=== PATIENT | female | born 1995 | race Asian ===

== ENCOUNTER 2023-05-29 10:07 | Outpatient (CLI) | payer OTHER ==
[2023-05-29] VITALS (7 sets, daily range): BP systolic 124–135; BP diastolic 64–90; PULSE 83–105; TEMP 97.9
[~2023-05-29] VITALS: Ht 152.4 cm; Wt 83.9 kg
--- NOTE | 2023-05-29 10:15 | NUR ---
1015PT AMBULATORY TO UNIT WITH SPOUSE AND MOTHER IN LAW. PT CHANGED INTO GOWN. PT COMFORTABLE IN BED. 1020THIS RN AT BEDSIDE TO PLACE TOCO AND EFM. EFM TRACING CAT I. PT VITAL SIGNS STABLE. 1025PT STATES SHE CAME IN DUE TO CTX. SHE STATES FEELING CRAMPS IN HER MID TO LOWER STOMACH AND IN HER BACK. SHE STATES FEELING THEM EVERY 10 TO 15 MINUTES APART. PT STATES ALSO FEELING SOME NAUSEA EARLIER IN THE DAY. SHE STATES FEELING OCCASIONAL VAGINAL AND RECTAL PRESSURE. PT REPORTS POSITIVE MOVEMENT. PT DENIES ANY LEAKING OF FLUID AND DENIES VAGINAL BLEEDING. 1030SVE AT THIS TIME BY THIS RN WITH A SECOND CHECK BY JOAN FELIZ. /2. 1055DR MILADIS NOTIFED. DR REDDING ORDERED TO DO A ROUTINE LABOR CHECK. DR REDDING ALSO ORDERED A CBC, CMP, AND A UA. HE STATES CALL HIM BACK AFTER AN HOUR AND WHEN THE LABS ARE BACK.
[2023-05-29] MEDS ORDERED: PRILOSEC10 MG PO (10:47)
[2023-05-29] MEDS ORDERED: PROMETHAZINE12.5 M5 PO (10:48)
[2023-05-29] MEDS ORDERED: PRENATAL TABLET PO (10:48)
[2023-05-29 11:57] LABS: HEMOGLOBIN 11.8 g/dl (12.5-16.0); MEAN CELL VOLUME 89 fl (80.0-100.0); MEAN CORPUSCULAR HEMOGLOBIN 30 pg (27-31); MEAN CORPUSCULAR HGB CONC 33 g/dl (33.0-37.0); MEAN PLATELET VOLUME 9.8 fl (7.4-10.4); PLATELET COUNT 318 K/mm3 (130-400); RED BLOOD COUNT 3.99 M/mm3 (4.10-5.30); REDCELL DISTRIBUTION WIDTH-CV 13.2 % (11.5-14.5)
[2023-05-29 12:10] LABS: COLLECTION METHOD CLEAN CATCH
[2023-05-29 12:15] LABS: HEMATOCRIT 35.3 % (37.0-47.0)
[2023-05-29 12:20] LABS: BAND 4 % (0-10); LYMPHOCYTE 18 % (20.0-51.0); NEUTROPHILS 73 % (42.0-75.2); PLATELET ESTIMATE NORMAL (NORMAL)
[2023-05-29 12:22] LABS: URINE APPEARANCE CLEAR (CLEAR/HAZY); URINE BLOOD NEGATIVE (NEGATIVE); URINE COLOR YELLOW (YELLOW); URINE GLUCOSE NEGATIVE (NEGATIVE); URINE KETONE NEGATIVE (NEGATIVE); URINE NITRATE NEGATIVE (NEGATIVE); URINE PROTEIN(semi-quant) NEGATIVE (NEGATIVE); URINE UROBILINOGEN 0.2 E.U/dL (0.2-1.0)
[2023-05-29 12:24] LABS: ALBUMIN 2.9 gm/dL (3.5-5.0); ALKALINE PHOSPHATASE 115 U/L (40-150); ANION GAP 11 mmol/L (7-16); AST,SGOT 15 U/L (5-34); BILIRUBIN,TOTAL 0.4 mg/dL (0.2-1.2); BLOOD UREA NITROGEN 7 mg/dL (7-19); CALCIUM 9.4 mg/dL (8.4-10.2); CARBON DIOXIDE 19 mmol/L (22-29); CHLORIDE 108 mmol/L (98-107); CREATININE, serum 0.69 mg/dL (0.57-1.11); GLUCOSE 75 mg/dL (70-99); POTASSIUM 3.7 mmol/L (3.5-4.5); SODIUM 138 mmol/L (136-145); TOTAL PROTEIN 6.6 gm/dL (6.2-8.1)
[2023-05-29] MEDS ORDERED: LR 1,000 ML IV PRN (12:30)
[2023-05-29 12:45] LABS: ALANINE AMINOTRANSFERASE < 6 U/L (0-55)
--- NOTE | 2023-05-29 13:28 | NUR ---
1325THIS RN GOES OVER DISCHARGE PAPERWORK WITH PT. DISCUSSED WHEN TO COME BACK AND WHAT ACTIVE LABOR MAY LOOK LIKE. PT VERBALIZES UNDERSTANDING. 1328PT AMBULATORY OFF UNIT WITH SPOUSE AND MOTHER IN LAW.
== END 2023-05-29 13:28 | disposition home or self-care (01) ==
LOC: LDRO 10:07
PROVIDERS: Obstetrics & Gynecology
DX: Z34.90 Encounter for supervision of normal pregnancy, unspecified, unspecified trimester (principal)

== ENCOUNTER 2023-05-29 16:50 | Inpatient (IN) | payer OTHER ==
[2023-05-29] VITALS (24 sets, daily range): BP systolic 82–126; BP diastolic 40–80; PULSE 82–126; TEMP 98.4
[~2023-05-29] VITALS: Ht 152.4 cm; Wt 83.9 kg
[~2023-05-29 16:50] MED LIST: PRENATAL TABLET PO; PRILOSEC10 MG PO; PROMETHAZINE12.5 M5 PO
--- NOTE | 2023-05-29 17:00 | NUR ---
1700PT TO UNIT IN A WHEELCHAIR WITH SPOUSE AND MOTHER IN LAW. PT CHANGED INTO GOWN AND COMFORTABLE IN BED. 1710THIS RN AT BEDSIDE TO PLACE TOCO AND EFM. EFM TRACING CAT I. PT VITAL SIGNS STABLE. 1715PT REPORTS HAVING CTX EVERY 2-3 MINUTES LASTING 60 SECONDS. PT STATES FEELILNG VERY UNCOMFORTABLE AND COULD NOT FIND ANY COMFORT. PT REPORTS STILL POSITIVE MOVEMENT. PT DENIES LOF AND DENIES ANY VAGINAL BLEEDING. SVE AT THIS TIME. . EFM TRACING CAT I. TOCO TRACING CTX EVERY 2.5 TO [address] 1730[address] GOODPASTURE NOTIFIED. ADMISSION ORDER GIVEN. 1750IV STARTED AT THIS TIME. TYPE AND SCREEN DRAWN AND SENT TO LAB. PT REQUESTS EPIDURAL. 1755FIRST BAG OF IVF STARTED AT THIS TIME. FLUID BOLUS STARTED. 1800[facility] BIOLOGIST NOTIFIED OF PT REQUEST FOR EPIDURAL. OBEY STATES HE WILL BE THERE SOON.
[2023-05-29] MEDS ORDERED: LR 1,000 ML IV SCH (18:15)
[2023-05-29] MEDS ORDERED: LR & Oxytocin 500 ML IV SCH ×2 (18:15→22:30)
--- NOTE | 2023-05-29 18:22 | NUR ---
1821- REPORT RECEIVED AND CARE ASSUMED. 1824- PT REPORTS INCREASED DISCOMFORT. EPIDURAL PROCESS DISCUSSED AND QUESTIONS ANSWERED. PT OFF MONITORS TO GET UP TO BATHROOM PRIOR TO EPIDURAL PLACEMENT. 1835- OBEY PURCHASING EXPEDITOR AT BEDSIDE FOR EPIDURAL PLACEMENT. PT POSITIONED SITTING UP ON EDGE OF BED. OBEY DISCUSSES RISKS AND BENEFITS AND HAS PT SIGN CONSENT. 1842- SINGLE SHOT FOR EPIDURAL. 1848- EPIDURAL COMPLETE. PT TOLERATED WELL. PT POSITIONED FOR COMFORT AND MONITORS ADJUSTED. PT REPORTS FEELING HER TOES WARM AND TINGLY. 1904- CONSENTS SIGNED. 1909- SVE BY THIS NURSE /. UPDATED PLAN OF CARE WITH PT AND ANSWERED QUESTIONS. PT REPORTS SHE IS COMFORTABLE WITH HER EPIDURAL.
[2023-05-29] MEDS ORDERED: ROPivacaine PF 0.2% 200 ML IV ONE (18:52)
[2023-05-29] MEDS ORDERED: diphenhydrAMINE 25 MG CAP PO PRN (19:00)
[2023-05-29] MEDS ORDERED: ePHEDrine 50 MG/10 ML VIAL IV PRN (19:00)
[2023-05-29] MEDS ORDERED: Naloxone 0.4 MG/ML VIAL IV PRN (19:00)
[2023-05-29] MEDS ORDERED: Ondansetron 4 MG/2 ML VIAL IV PRN (19:00)
[2023-05-29] MEDS ORDERED: diphenhydrAMINE 50 MG/ML 1 ML VIAL IV PRN (19:00)
--- NOTE | 2023-05-29 19:40 | NUR ---
1939- PT REPORTS SHE IS COMFORTABLE WITH HER EPIDURAL, SHE DENIES NEEDS AT THIS TIME. 2034- WILSON CATHETER PLACED AT THIS TIME WITHOUT DIFFICULTY. SVE BY THIS NURSE STILL UNCHANGED. PT TURNED TO RIGHT TILT AND MONITORS ADJUSTED.
--- NOTE | 2023-05-29 20:40 | NUR ---
2039-TUMS GIVEN FOR PT COMPLAINT OF HEARTBURN. 2051- MONITORS ADJUSTED. PT REPORTS COMFORTABLE WITH HER EPIDURAL. 2107- PT HAS EPISODE OF VOMITTING. ZOFRAN OFFERED. 2114- ZOFRAN PROVIDED PER PT REQUEST. 2153- DR SULLIVAN AT BEDSIDE. INTRODUCES SELF AND DISCUSSES PLAN OF CARE AND POSSIBLE AROM. PT IS AGREEABLE AT THIS TIME. 2154- SVE BY DR SULLIVAN -/-3 WITH BALLOTABLE HEAD PRESENTING PART. DR DOES NOT FEEL COMFORTABLE WITH AROM AT THIS TIME DUE TO BALLOTABLE PRESENTATION. DISCUSSES PITOCIN AUGMENTATION INSTEAD AND PT IS AGREEABLE. ANSWERS PT QUESTIONS.
--- NOTE | 2023-05-29 22:22 | NUR ---
2222- NURSE TO BEDSIDE WITH PITOCIN. QUESTIONS ANSWERED. PITOCIN DRIP STARTED ORDERED FOR AUGMENTATION OF LABOR.
--- NOTE | 2023-05-29 22:30 | NUR ---
2229- DR SULLIVAN REVIEWS STRIP. SHE STATES SINCE THERE ARE OTHER PT'S ON THE FLOOR WITH STRIP PROBLEMS AND SINCE THIS PT'S BABY IS BALLOTABLE ON EXAM, SHE WOULD LIKE TO "SLOW PIT" HER. SHE STATES SHE DOESN'T WANT TO GO UP ON PITOCIN EVERY 15 MINUTES BECAUSE THE BABY IS SO HIGH.
--- NOTE | 2023-05-29 23:12 | NUR ---
2312- PITOCIN INCREASED TO 4MU/MIN. PT IS SLEEPING AT THIS TIME. 0005- DR SULLIVAN AT DESK. SHE REVIEWS STRIP. STATES TO WAIT AT LEAST AN HOUR AT 4MU/MIN BEFORE TURNING PITOCIN UP. 0020- PITOCIN INCREASED TO 6MU/MIN. PT IS SLEEPING AT THIS TIME. 0030- DR SULLIVAN AT DESK AND NOTIFIED THAT PITOCIN HAS BEEN TURNED UP TO 4MU/MIN. SHE STATES TO LEAVE PITOCIN AT 6MU/MIN FOR AT LEAST AN HOUR BEFORE CONSIDERING TURNING IT UP.
[2023-05-30] VITALS (44 sets, daily range): BP systolic 92–132; BP diastolic 52–70; PULSE 77–121; TEMP 97.7–101.8
--- NOTE | 2023-05-30 00:50 | NUR ---
0050- NURSE TO BEDSIDE. PT IS CURRENTLY AWAKE. DISCUSSED PLAN OF CARE WITH PT IN REGARDS TO HER PITOCIN. QUESTIONS ANSWERED. PT TURNED TO LEFT TILT WITH PEANUT BALL.
--- NOTE | 2023-05-30 01:18 | NUR ---
0118- DR SULLIVAN AT BEDSIDE. SVE BY DR SULLIVAN /-2. SROM OF CLEAR FLUID DURING DR SULLIVAN'S EXAM. DR SULLIVAN DISCUSSES PLAN OF CARE WITH PT AND FAMILY, QUESTIONS ANSWERED. 0120- DR SULLIVAN STATES TO LEAVE PITOCIN AT 6MU/MIN FOR NOW, UNLESS CONTRACTIONS "REALLY SPACE OUT."
--- NOTE | 2023-05-30 01:40 | NUR ---
0140- PT REPORTS FEELING COMFORTABLE WITH HER EPIDURAL. SHE DENIES NEEDS AT THIS TIME. URINE OUTPUT IN WILSON IS MINIMAL AND DARK. TUBING MILKED AND REPOSITIONED. 0158- MONITORS ADJUSTED. 0250- NURSE TO BEDSIDE. PT REPORTS BEING COMFORTABLE WITH HER EPIDURAL. SHE STATES SHE IS HAVING SOME MILD INTERMITTENT PRESSURE IN HER BOTTOM. ALSO STATES SHE IS STILL HAVING SOME ACID REFLUX. MORE TUMS OFFERED AND PT WISHES TO TRY THEM. 0252- TUMS PROVIDED. WILSON STILL WITH MINIMAL OUTPUT. CATHETER TUBING MILKED AND REPOSITIONED. TUBING ALSO FLUSHED WITH SALINE. WILL CONTINUE TO MONITOR.
--- NOTE | 2023-05-30 04:25 | NUR ---
0425- NURSE TO BEDSIDE. PT REPORTS THAT SHE IS FEELING SOME MORE PRESSURE. NOT INTENSE, BUT SHE NOTICES IT WITH CONTRACTIONS. 0430- SVE BY THIS NURSE 8/0. PT REPOSITIONED TO RIGHT TILT WITH PEANUT BALL. WILSON CONTINUES TO HAVE MINIMAL URINE OUTPUT. CATHETER TUBING MILKED AND REPOSITIONED. PT ENCOURAGED TO CALL OUT WITH INCREASING PRESSURE.
--- NOTE | 2023-05-30 05:05 | NUR ---
0505- PT CALLS OUT COMPLAINING OF PRESSURE. NURSE TO BEDSIDE, SVE BY THIS NURSE 1. DISCUSSED PLAN OF CARE WITH PT AND ENCOURAGED HER TO CALL OUT WITH INCREASING PRESSURE. 0550- PT CALL OUT COMPLAINING OF INTENSE RECTAL PRESSURE. NURSE TO BEDSIDE, SVE BY THIS NURSE 2. DISCUSSED PLAN OF CARE FOR PUSHING WITH PT AND QUESTIONS ANSWERED. 0557- WILSON CATHETER REMOVED FOR PUSHING. NURSE DISCUSSES PUSHING WITH PT AND QUESTIONS ANSWERED. PT POSITIONED IN FOOTPLATES FOR PUSHING. 0601- PT BEGINS COACHED PUSHING WITH CONTRACTIONS. AND MOTHER IN LAW AT BEDSIDE. 0605- DURING PUSHING, PT BEGINS HAVING MODERATE AMOUNT OF VAGINAL BLEEDING. A PUDDLE FORMS UNDER PT BUTTOCKS. 0607- PT CONTINUES TO HAVE MODERATE AMOUNT OF VAGINAL BLEEDING WITH PUSHING. 0608- UNDERBUTT PAD CHANGED. 0609- PT PUSHES WITH CONTRACTION. BLEEDING HAS DECREASED, BUT IS STILL A CONTINUOUS TRICKLE. 0614- VAGINAL BLEEDING DECREASED TO NORMAL AMOUNT OF BLOODY SHOW AT THIS TIME. WILL CONTINUE TO MONITOR. 0625- BEDSIDE SHIFT REPORT GIVEN TO JOSEY Castro RN, INCLUDING DISCRIPTION OF VAGINAL BLEEDING AT BEGINNING OF PUSHING AND DECREASED URINE OUTPUT.
[2023-05-30] MEDS ORDERED: Gentamicin/Sodium Chloride 100 ML IV ONE (08:30)
[2023-05-30] MEDS ORDERED: metroNIDAZOLE 100 ML IV SCH (08:30)
--- NOTE | 2023-05-30 08:46 | NUR ---
0625THIConner RN ASSUMES CARE OF PT AT THIS TIME. 0625CONTINUE PUSHING WITH PT AT THIS TIME. 0715DR REDDING AT BEDSIDE TO ASSESS. 0720GOOD MATERNAL EFFORT WITH PUSHING PER DR REDDING. DR REDDING DISCUSSES WITH PT MOVING FORWARD. 0722PUSHING STOPPED AT THIS TIME. PT ORDERED TO LABOR DOWN FOR ABOUT 30 MINUTES, VERBAL ORDER PER DR REDDING. DR REDDING NEEDED FOR MORNING . PT ORDERED TO REST THROUGH CTX. 0755THIConner RN AT BEDSIDE TO REPOSITION PT. PT FEELS WARM TO TOUCH. THIS RN CHECKS TEMPERATURE. 100.4 VIA ORAL. 101.[address] REDDING NOTIFIED AND AWARE. 0810ORDERED PER DR REDDING TO BEGIN PUSHING AGAIN AT THIS TIME. 0815DR REDDING AT BEDSIDE. DR REDDING ORDERS ANTIBIOTICS TO BE GIVEN. 0820PT NAUSEOUS AND PUKING AT THIS TIME. 0822PT STATES SHE FEELS BETTER AFTER. 0824THIConner RN RESUMES PUSHING WITH PT AT THIS TIME. GOOD MATERNAL EFFORT. 0826SUKenton RN AT BEDSIDE TO ASSIST HIS RN WITH ANTIBIOTICS. 0835DR REDDING BACK AT BEDSIDE. 0840ROOM AND BED SET UP FOR IMPENDING DELIVERY. NURSERY NURSE NOTIFIED. 0846SVD OF VIABLE FEMALE INFANT PER DR REDDING. INFANT PLACED ON MATERNAL ABDOMEN. CARE ASSUMED BY NURSERY. 0850SVD OF PLACENTA PER DR REDDING. STRAIGHT CATH AT THIS TIME PER DR REDDING. PARTIAL THIRD DEGREE PERINEAL LACERATION NOTED PER DR REDDING. REPAIR STARTED AT THIS TIME. MODERATE AMOUNT OF BLEEDING NOTED. PT VITAL SIGNS STABLE. 0855REPAIR FINISHED AT THIS TIME PER DR REDDING. FUNDUS FIRM AT U. LOCHIA WNL. PT VITAL SIGNS STABLE. 0900ROOM AND BED PUT BACK TOGETHER. PT CLEANED UP. PERICARE PERFORMED. PT COMFORTABLE IN BED. CHUX PAD CHANGED. ICE PACK PLACED ON PERINEUM. FUNDUS FIRM AT U. LOCHIA WNL. PT VITAL SIGNS STABLE.
[2023-05-30] MEDS ORDERED: oxyCODONE 5 MG TAB PO PRN (11:00)
--- NOTE | 2023-05-30 11:30 | NUR ---
THIS RN GIVES REPORT TO DANILO FELIZ. DANILO FELIZ ASSUMES CARE OF PT
[2023-05-30] MEDS ORDERED: Ibuprofen 600 MG TAB PO SCH (12:00)
[2023-05-30] MEDS ORDERED: Acetaminophen 500 MG TAB PO PRN (12:00)
[2023-05-30] MEDS ORDERED: Acetaminophen 500 MG TAB PO SCH (12:00)
[2023-05-30] MEDS ORDERED: Sennosides/Docusate 8.6-50 MG TAB PO SCH (17:00)
[2023-05-30] MEDS ORDERED: Magnes Hydrox (MOM) 80 MG/ML 30 ML CUP PO PRN (21:30)
[2023-05-31 00:31] VITALS: BP 107/57; PULSE 91; TEMP 97.7
[2023-05-31] MEDS ORDERED: IBU600 MG PO (08:30)
[2023-05-31] MEDS ORDERED: TYLENOL 500MG500 MG PO (08:30)
[2023-05-31] MEDS ORDERED: Prenatal Vitamins/Iron/FA TAB PO SCH (09:00)
[2023-05-31 09:05] VITALS: BP 108/77; PULSE 82; TEMP 98
[2023-05-31 17:14] VITALS: BP 130/77; PULSE 80; TEMP 97.7
[2023-05-31 20:10] VITALS: BP 128/72; PULSE 92; TEMP 97.6
[2023-06-01 08:09] VITALS: BP 117/78; PULSE 79; TEMP 98
--- NOTE | 2023-06-01 13:35 | NUR ---
DISCHARGE INSTRUCTIONS REVIEWED WITH PT REGARDING SELF CARE AND BOARDER STATUS FOR BABY. QUESTIONS INVITED AND ANSWERED. PT VERBALIZES UNDERSTANDING. PT DISCHARGED TO BOARDER STATUS.
== END 2023-06-01 13:35 | disposition home or self-care (01) | DRG 768 ==
LOC: LDRO 16:50 → OB 18:46 → LDR 18:46 → OB 05-30 16:43
PROVIDERS: Student in an Organized Health Care Education/Training Program; ADMIT Obstetrics & Gynecology
PROC: 10E0XZZ Delivery of Products of Conception, External Approach (ICD-10-PCS; principal; 2023-05-30)
PROC: 0DQR0ZZ Repair Anal Sphincter, Open Approach (ICD-10-PCS; 2023-05-30)
DX: O99.344 Other mental disorders complicating childbirth (principal); Z37.0 Single live birth; O41.1230 Chorioamnionitis, third trimester, not applicable or unspecified; O70.20 Third degree perineal laceration during delivery, unspecified; O77.0 Labor and delivery complicated by meconium in amniotic fluid; O99.62 Diseases of the digestive system complicating childbirth; K21.9 Gastro-esophageal reflux disease without esophagitis; F41.9 Anxiety disorder, unspecified; O99.214 Obesity complicating childbirth; Z3A.40 40 weeks gestation of pregnancy
CPT/HCPCS: J0290; J1580; J1836; J2405; J2590; J2795; J7120